=== PATIENT | male | born 1955 | race African-American/Black ===

== ENCOUNTER 2017-11-26 11:47 | Day surgery (SDC) | payer OTHER ==
[~2017-11-26] VITALS: Ht 180.3 cm; Wt 83.9 kg
[~2017-11-26 11:47] MED LIST: DAILY MULTIPLE1 EACH PO; NAPROXEN500 MG PO; NEURONTIN300 MG PO; OXYCODONE HCL10 MG PO; PREDNISONE20 MG PO
[2017-11-26 12:13] VITALS: BP 169/95
[2017-11-26 17:00] VITALS: BP 159/78
[2017-11-26 17:30] VITALS: BP 152/84
== END 2017-11-26 17:36 | disposition home or self-care (01) ==
LOC: SDC 11:47
DX: H33.022 Retinal detachment with multiple breaks, left eye (principal); H33.021 Retinal detachment with multiple breaks, right eye; K21.9 Gastro-esophageal reflux disease without esophagitis; I10 Essential (primary) hypertension; F41.9 Anxiety disorder, unspecified; Z79.82 Long term (current) use of aspirin
CPT/HCPCS: J0690; J1100; J2250; J2405; J3010; J3300

== ENCOUNTER 2018-04-19 05:38 | Day surgery (SDC) | payer OTHER ==
[~2018-04-19] VITALS: Ht 180.3 cm; Wt 82.5 kg
[~2018-04-19 05:38] MED LIST changes: +ASPIRIN325 MG PO; +CYMBALTA60 MG PO; +DILTIAZEM 24HR180 MG PO; +HEART MED PO; +HYDROCHLOROTHIA25 MG PO; +OXYCODONE HCL15 MG PO
[2018-04-19 06:05] VITALS: BP 125/83
[2018-04-19 09:31] VITALS: BP 167/89
== END 2018-04-19 09:44 | disposition home or self-care (01) ==
LOC: SDC 05:38
DX: H33.41 Traction detachment of retina, right eye (principal); I10 Essential (primary) hypertension; E78.5 Hyperlipidemia, unspecified; Z79.82 Long term (current) use of aspirin
CPT/HCPCS: J0690; J2250; J3010